=== PATIENT | male | born 1950 | race Asian ===

== ENCOUNTER 2021-07-16 21:55 | Inpatient (IN) | payer OTHER ==
[~2021-07-16] VITALS: Ht 190.5 cm; Wt 67.2 kg
[2021-07-16 23:22] LABS: POTASSIUM 3.6 mmol/L (3.6-5.2)
[2021-07-16 23:39] VITALS: BP 107/57; TEMP 98.6; Ht 190.5 cm; Wt 67.2 kg
[2021-07-17] VITALS (7 sets, daily range): BP systolic 122–144; BP diastolic 57–66; TEMP 97.8–98.6
[2021-07-17 03:04] LABS: POTASSIUM 4.1 mmol/L (3.6-5.2)
[2021-07-17 06:52] LABS: PLATELET COUNT 361 K/uL (142-355)
[2021-07-17 07:54] LABS: POTASSIUM 3.4 mmol/L (3.6-5.2)
[2021-07-18 04:21] VITALS: BP 141/65; TEMP 98.1
[2021-07-18 05:01] LABS: PLATELET COUNT 373 K/uL (142-355)
[2021-07-18 05:12] LABS: POTASSIUM 3.2 mmol/L (3.6-5.2)
[2021-07-18 08:00] VITALS: BP 149/78; TEMP 98
[2021-07-18 12:00] VITALS: BP 136/67; TEMP 97.6
[2021-07-18 16:00] VITALS: BP 135/59; TEMP 98.1
[2021-07-18 23:54] VITALS: BP 93/70; TEMP 98.8
[2021-07-19 04:00] VITALS: BP 156/68; TEMP 98.3
[2021-07-19 05:36] LABS: PLATELET COUNT 370 K/uL (142-355)
[2021-07-19 05:45] LABS: POTASSIUM 3.2 mmol/L (3.6-5.2)
[2021-07-19 08:00] VITALS: BP 140/59; TEMP 97.7
[2021-07-19 12:00] VITALS: BP 145/73; TEMP 98.1
[2021-07-19 20:00] VITALS: BP 125/50; TEMP 98.3
== END 2021-07-19 21:40 | disposition short-term general hospital (02) | DRG 177 ==
LOC: MED/SURG 21:55
PROVIDERS: Internal Medicine Endocrinology, Diabetes & Metabolism; ADMIT Internal Medicine; ATTEND Internal Medicine
DX: U07.1 COVID-19 (principal); J96.01 Acute respiratory failure with hypoxia; N17.8 Other acute kidney failure; E46 Unspecified protein-calorie malnutrition; M62.82 Rhabdomyolysis; E87.6 Hypokalemia; E83.39 Other disorders of phosphorus metabolism; E83.42 Hypomagnesemia
CPT/HCPCS: 36415; 36416; 80048; 80053; 82550; 82728; 83615; 83735; 84100; 84484; 85007; 85027; 85379; 86140; 87635; 94760; J0456; J0696; J1100; J1644; J3490; U0003